=== PATIENT | male | born 1960 | race Caucasian/White ===

== ENCOUNTER 2021-10-07 07:30 | Inpatient (IN) | payer SELFPAY ==
[~2021-10-07] VITALS: Ht 170.2 cm; Wt 73.9 kg
[2021-10-07 07:45] VITALS: BP 234/109
[2021-10-07] MEDS ORDERED: MORPHINE SULFATE 4 MG/ML SYR IVP ONE (07:50)
[2021-10-07] MEDS ORDERED: DICYCLOMINE HCL LIQUID 20 MG, ALUMINUM HYD/MAG/SIMETHICONE 30 ML, LIDOCAINE VISCOUS 2% ... PO ONE ×3 (07:50)
[2021-10-07] MEDS ORDERED: ONDANSETRON 4 MG/2 ML VIAL IVP ONE ×2 (07:50→10:15)
[2021-10-07] MEDS ORDERED: NACL 0.9% 1,000 ML IV ONE ×2 (08:00→10:15)
[2021-10-07] MEDS ORDERED: ALUMINUM HYD/MAG/SIMETHICONE 30 ML UDC ONE (08:13)
[2021-10-07] MEDS ORDERED: DICYCLOMINE HCL LIQUID 10 MG/5 ML UDC ONE (08:13)
[2021-10-07 08:21] LABS: BASOPHILS % (AUTO) 0.3 % (0.0-2.0); HEMATOCRIT 42.3 % (36-52); HEMOGLOBIN 14.7 g/dL (12.0-18.0); MEAN CORPUSCULAR HEMOGLOBIN 30 pg (27-31); MEAN CORPUSCULAR HGB CONC 35 g/dL (33-37); MEAN CORPUSCULAR VOLUME 86.9 fL (80-94); MONOCYTES # (AUTO) 0.3 K/uL (0.8-1.0); MONOCYTES % (AUTO) 2.3 % (1.7-9.3); NEUTROPHILS # (AUTO) 10.2 K/uL (1.8-7.7); NEUTROPHILS % (AUTO) 88.4 % (42.2-75.2); PLATELET COUNT (AUTO) 242 K/uL (140-450); RED BLOOD CELL COUNT(AUTO) 4.86 MIL/uL (4.20-6.10); WHITE BLOOD COUNT (AUTO) 11.5 K/uL (4.8-10.8)
[2021-10-07 08:41] LABS: ALBUMIN 4.4 g/dL (3.4-5.0); ANION GAP 25.1 (8-16); CARBON DIOXIDE 18.4 mmol/L (21-32); POTASSIUM 3.5 mmol/L (3.5-5.1); TOTAL BILIRUBIN 1.6 mg/dL (0.0-1.0)
[2021-10-07 08:52] LABS: APPEARANCE,URINE CLEAR (CLEAR); BILIRUBIN,URINE NEGATIVE (NEGATIVE); BLOOD, URINE NEGATIVE (NEGATIVE); COLOR,URINE YELLOW (YELLOW); LEUKOCYTE ESTERASE ,URINE NEGATIVE (NEGATIVE); NITRITE, URINE NEGATIVE (NEGATIVE); UGLUCOSE 3+ (NEGATIVE)
[2021-10-07 09:16] LABS: RBC,URINE 0-5 /HPF (0-5); WBC,URINE 0-5 /HPF (0-5)
[2021-10-07 09:17] LABS: OTHER CASTS, URINE None Seen /LPF (None Seen); YEAST,URINE Few /HPF (None Seen)
[2021-10-07 09:22] LABS: BARBITURATE, URINE NEGATIVE ng/ml (NEG <=200); BENZODIAZEPINE, URINE NEGATIVE ng/mL (NEG <=200); CANNABINOID, URINE NEGATIVE ng/mL (NEG <=50); COCAINE, URINE NEGATIVE ng/mL (NEG <=300)
[2021-10-07 09:23] LABS: OPIATE, URINE POSITIVE ng/mL (NEG <=2000); PHENCYCLIDINE SCREEN,URINE NEGATIVE ng/mL (NEG <=25)
[2021-10-07] MEDS ORDERED: DEXTROSE 50% 50 ML SYR IVP PRN (10:25)
[2021-10-07] MEDS ORDERED: LORazepam 2 MG/ML VIAL IM/IVP PRN (10:25)
[2021-10-07] MEDS ORDERED: MORPHINE SULFATE 2 MG/ML SYR IVP PRN (10:25)
[2021-10-07] MEDS ORDERED: MAG SULF 2000 MG/WATER PREMIX 50 ML IV PRN (10:25)
[2021-10-07] MEDS ORDERED: SODIUM PHOS / POTASSIUM PHOS 1 PKT PDR PO PRN (10:25)
[2021-10-07] MEDS ORDERED: DOCUSATE SODIUM 100 MG GELCAP PO PRN (10:25)
[2021-10-07] MEDS ORDERED: ONDANSETRON 4 MG/2 ML VIAL IVP PRN (10:25)
[2021-10-07] MEDS ORDERED: ACETAMINOPHEN 325 MG TAB PO PRN (10:25)
[2021-10-07] MEDS ORDERED: ZOLPIDEM 5 MG TAB PO PRN (10:25)
[2021-10-07] MEDS ORDERED: POTASSIUM CHLORIDE 10 MEQ TABER PO PRN (10:25)
[2021-10-07] MEDS ORDERED: OMEP20EC11 PO (10:51)
[2021-10-07] MEDS ORDERED: METF-713 PO (10:51)
[2021-10-07] MEDS: NACL 0.9% 1,000 ML IV SCH ×2 (11:08→23:12)
[2021-10-07] MEDS: HYDROcodone/APAP 5/325 MG 1 TAB TAB PO PRN ×2 (11:17→21:15)
[2021-10-07 11:32] LABS: PROTHROMBIN TIME 10.7 secs (10.8-13.4)
[2021-10-07] MEDS: BLOOD GLUCOSE MONITORING 1 DEV DEV FS SCH ×2 (11:35→17:01)
[2021-10-07 11:47] LABS: AMYLASE 29 U/L (25-115); LIPASE 28 U/L (73-393); PHOSPHORUS 3.4 mg/dL (2.5-4.9); THYROID STIMULATING HORMONE 0.72 uIU/mL (0.34-3.74)
[2021-10-07 11:51] LABS: APPEARANCE,URINE CLEAR (CLEAR); BILIRUBIN,URINE NEGATIVE (NEGATIVE); BLOOD, URINE NEGATIVE (NEGATIVE); COLOR,URINE YELLOW (YELLOW); LEUKOCYTE ESTERASE ,URINE NEGATIVE (NEGATIVE); NITRITE, URINE NEGATIVE (NEGATIVE); UGLUCOSE 3+ (NEGATIVE)
[2021-10-07 11:55] LABS: RBC,URINE 0-5 /HPF (0-5); WBC,URINE 0-5 /HPF (0-5); YEAST,URINE Few /HPF (None Seen)
[2021-10-07 11:56] LABS: OTHER CASTS, URINE None Seen /LPF (None Seen)
[2021-10-07] MEDS: INSULIN LISPRO SLIDING SCALE 100 UNITS/ML VIAL SUBQ PRN (12:01)
[2021-10-08] VITALS: BP 146/74
[2021-10-08] MEDS: PANTOPRAZOLE 40 MG INJ VIAL IVP SCH ×2 (01:03→08:43)
[2021-10-08] MEDS: METOCLOPRAMIDE 10 MG/2 ML INJ VIAL IVP SCH ×2 (01:03→05:05)
[2021-10-08] MEDS: INSULIN LISPRO SLIDING SCALE 100 UNITS/ML VIAL SUBQ PRN ×2 (01:04→06:47)
[2021-10-08] MEDS: BLOOD GLUCOSE MONITORING 1 DEV DEV FS SCH ×3 (01:10→11:15)
[2021-10-08 04:00] VITALS: BP 136/65
[2021-10-08] MEDS: NACL 0.9% 1,000 ML IV SCH (06:25)
[2021-10-08 07:32] LABS: BASOPHILS % (AUTO) 0.2 % (0.0-2.0); EOSINOPHILS % (AUTO) 0.1 % (0.0-4.0); HEMATOCRIT 37.5 % (36-52); HEMOGLOBIN 13.2 g/dL (12.0-18.0); LYMPHOCYTES % (AUTO) 19.2 % (20.5-51.1); MEAN CORPUSCULAR HEMOGLOBIN 31 pg (27-31); MEAN CORPUSCULAR HGB CONC 35 g/dL (33-37); MEAN CORPUSCULAR VOLUME 87.6 fL (80-94); MONOCYTES # (AUTO) 0.8 K/uL (0.8-1.0); MONOCYTES % (AUTO) 7.7 % (1.7-9.3); NEUTROPHILS # (AUTO) 7.8 K/uL (1.8-7.7); NEUTROPHILS % (AUTO) 72.8 % (42.2-75.2); PLATELET COUNT (AUTO) 219 K/uL (140-450); RED BLOOD CELL COUNT(AUTO) 4.28 MIL/uL (4.20-6.10); RED CELL DISTRIBUTION WIDTH 13.2 % (11.6-13.7); WHITE BLOOD COUNT (AUTO) 10.7 K/uL (4.8-10.8)
[2021-10-08 07:48] LABS: ALBUMIN 3.3 g/dL (3.4-5.0); ANION GAP 12.4 (8-16); CARBON DIOXIDE 25.2 mmol/L (21-32); CREATININE 0.7 mg/dL (0.6-1.3); MAGNESIUM 2.2 mg/dL (1.8-2.4); POTASSIUM 3.6 mmol/L (3.5-5.1); TOTAL BILIRUBIN 0.8 mg/dL (0.0-1.0)
[2021-10-08 08:00] VITALS: BP 161/73
[2021-10-08] MEDS ORDERED: fentaNYL citrate 0.05 MG/ML VIAL ONE (10:13)
[2021-10-08] MEDS ORDERED: diphenhydrAMINE 50 MG/ML VIAL ONE (10:13)
[2021-10-08] MEDS ORDERED: MIDAZOLAM 5 MG/5 ML VIAL ONE (10:14)
[2021-10-08] MEDS ORDERED: fentaNYL citrate 0.05 MG/ML VIAL IVP ONE (11:35)
[2021-10-08] MEDS ORDERED: MIDAZOLAM 2 MG/2 ML VIAL IVP ONE (11:35)
[2021-10-08] MEDS ORDERED: FLUCONAZOLE 100 MG TAB PO ONE ×3 (11:35→13:05)
[2021-10-08] MEDS ORDERED: PANT40EC56 PO (11:45)
[2021-10-08] MEDS ORDERED: FLUC100T1 PO (11:45)
[2021-10-08] MEDS ORDERED: METF-352 PO (11:46)
[2021-10-08 12:00] VITALS: BP 138/63
[2021-10-09] MEDS ORDERED: PANTOPRAZOLE 40 MG TABEC PO SCH (09:00)
[2021-10-09] MEDS ORDERED: FLUCONAZOLE 100 MG TAB PO SCH ×3 (09:00)
== END 2021-10-08 14:50 | disposition home or self-care (01) | DRG 392 ==
LOC: MED 07:30 → MTU 10:27 → MED 10:27 → MTU 15:45
PROVIDERS: ADMIT Family Medicine; ATTEND Family Medicine
PROC: 0DB68ZX Excision of Stomach, Via Natural or Artificial Opening Endoscopic, Diagnostic (ICD-10-PCS; 2021-10-08)
PROC: 0DB38ZX Excision of Lower Esophagus, Via Natural or Artificial Opening Endoscopic, Diagnostic (ICD-10-PCS; principal; 2021-10-08 11:00)
DX: K20.90 Esophagitis, unspecified without bleeding (principal); K29.70 Gastritis, unspecified, without bleeding; E11.65 Type 2 diabetes mellitus with hyperglycemia; I87.8 Other specified disorders of veins; K43.9 Ventral hernia without obstruction or gangrene; Z79.899 Other long term (current) drug therapy
CPT/HCPCS: 36415; 36600; 71045; 80053; 80305; 81001; 82150; 82803; 82948; 83036; 83690; 83735; 84100; 84443; 84484; 85025; 85610; 85730; 86677; 87081; 93005; 96361; 96374; 96375; 96376; 99285; C9113; J1200; J1815; J2250; J2270; J2405; J2765; J3010; J7030